=== PATIENT | female | born 1985 | race Hispanic/Latino ===

== ENCOUNTER 2021-01-05 07:26 | Day surgery (SDC) | payer OTHER ==
[2020-12-31 16:39] LABS: Absolute Lymphocytes (CBC) 2.9 K/uL (0.7-4.9); Basophils % 0.8 % (0-1.3); Hematocrit 41.8 % (36.0-45.0); Lymphocytes % 35.1 % (15.3-44.8); MPV 8.6 fL (7.6-11.3); RBC Red Blood Cell Count 4.63 M/uL (3.86-4.86)
[2020-12-31 16:50] LABS: ALT/SGPT 240 U/L (12-78); AST/SGOT 104 U/L (15-37); Albumin 3.4 g/dL (3.4-5.0); Alkaline Phosphatase 91 U/L (45-117); Amylase 75 U/L (25-115); BUN Blood Urea Nitrogen 11 mg/dL (7-18); Bicarbonate 26 mmol/L (21-32); Bilirubin Direct < 0.1 mg/dL (0-0.2); Bilirubin Total 0.3 mg/dL (0.2-1.0); Glucose Level 129 mg/dL (74-106); Lipase 212 U/L (73-393); Potassium 3.4 mmol/L (3.5-5.1); Sodium Level 142 mmol/L (136-145)
[2021-01-05 07:43] LABS: Specific Gravity > 1.030 (1.005-1.030)
[2021-01-05] MEDS ORDERED: Ringers Lactate 1,000 ML IV ONE (07:43)
[2021-01-05 08:13] VITALS: O2SAT 100
[2021-01-05] MEDS ORDERED: MIDAZOLAM HCL 2 MG/2 ML INJ ONE (08:18)
[2021-01-05] MEDS ORDERED: LIDOCAINE 1% MPF 5 ML VIAL ONE (08:18)
[2021-01-05] MEDS ORDERED: propofoL 200 MG/20 ML VIAL IV ONE (08:18)
[2021-01-05] MEDS ORDERED: FENTANYL CITR 100 MCG/2 ML ONE ×2 (08:18→08:46)
[2021-01-05] MEDS ORDERED: ROCURONIUM 50 MG/5 ML VIAL IV ONE (08:21)
[2021-01-05] MEDS: CEFOXITIN/NS 1gm 1 GM/50 ML BAG ONE ×2 (08:34→08:40)
[2021-01-05] MEDS: BUPIVACAINE 0.5% Inj,MDV 50 mL VIAL ONE ×2 (08:36→08:46)
[2021-01-05] MEDS ORDERED: GLYCOPYRROLATE 0.2 MG/ML SYR ONE (08:45)
[2021-01-05] MEDS ORDERED: dexAMETHasone 10 MG/ML VIAL ONE (08:45)
[2021-01-05] MEDS ORDERED: ONDANSETRON 4 MG/2 ML VIAL ONE (08:45)
[2021-01-05] MEDS ORDERED: NEOSTIGMINE 1 MG/ML -5 ML ONE (08:45)
[2021-01-05] MEDS ORDERED: KETOROLAC 30 MG/ML INJ ONE (08:45)
--- NOTE | 2021-01-05 09:08 | P.BOP ---
Preoperative diagnosis: symptomatic cholelithiasis, acute cholecystitis Postoperative diagnosis: same, umbilical hernia Primary procedure: Laparoscopic cholecystectomy Secondary procedure: Umbilical hernia repair Contact Lens Edge Buffer: BRIANNA SERRANO ([employer]NALY[employer]) Estimated blood loss: <10cc Specimen: GB, Hernia Findings: as above Anesthesia: General Complications: None Transferred to: Recovery Room Condition: Good
[2021-01-05] MEDS ORDERED: HYDROMORPHONE HCL 1 MG/ML INJ ONE (09:34)
[2021-01-05 10:08] VITALS: TEMP 97
[2021-01-05] MEDS ORDERED: CODEINE 30MG/APAP 300MG TAB ONE (10:34)
[2021-01-05 11:07] VITALS: BP 121/79
--- NOTE | 2021-01-05 11:34 | OP ---
Date of Procedure: 01/05/2021 Surgeon: Tom Adkins MD Circuit Walker: Jennifer Kirk. Preoperative Diagnoses: Symptomatic cholelithiasis, acute cholecystitis. Postoperative Diagnoses: Symptomatic cholelithiasis, acute cholecystitis, umbilical hernia. Procedures Performed: Laparoscopic cholecystectomy, repair of umbilical hernia. Estimated Blood Loss: Less than 10 cc. Anesthesia: General plus local. Indication: This is the case of a female, comes to us with epigastric right upper quadrant pain, sev eral attacks, diagnosed with acute cholecystitis, symptomatic cholelithiasis. The benefits, alternat jennifer, and risks of laparoscopic possible open cholecystectomy fully explained, which include, but not limited to infection, bleeding, damage to adjacent structures, anesthesia complication, choledocholi thiasis, bile leak, pancreatitis, MT, and even . She also understands this may not relieve symp toms. She might need more than one surgical intervention. She understood, signed a consent. Procedure In Detail: The patient was brought to the operating room, placed in supine position. Anes thesia was done without complication. Abdominal area was prepped and draped in a sterile fashion. L ocal anesthesia was applied followed by sharp incision of the skin in the infraumbilical region. Onc e we went inside, we noticed the patient to have an umbilical hernia and we opened the hernia sac, re moved the hernia sac, cleaned the fascial edges and used that. Vicryl #1 placed inside the fascia. Shmuel trocar was carefully introduced and pneumoperitoneum was obtained. I placed 3 more trocars, 5 mm each one of them in the epigastric and right upper quadrant area under direct visualization and a fter injecting local anesthetic. A grasper was placed in the fundus of the gallbladder, another gras per in the infundibulum retracting the gallbladder in the inferolateral fashion, exposing the triangl e of Calot and obtaining critical view. Cystic duct and cystic artery were clearly isolated, freed c ircumferentially and a connection between those and the gallbladder was clearly identified. I procee ded to ligate those by using at least 3 clips proximal, 1 clip distal, ligation in middle. Same was done with the cystic artery. No bile leak. No bleeding. The gallbladder was removed from liver usi ng Bovie cauterizer and removed from abdominal cavity using EndoCatch through umbilical incision. Th e area was inspected once again. No bile leak. No bleeding. Clips were intact. At that moment, I proceeded to remove trocars under direct vision. Deflated pneumoperitoneum. Closed the fascia and u mbilical hernia with #1 Vicryl. Irrigated subcutaneous tissue, closed that with 3-0 chromic and the skin in a subcuticular fashion with 3-0 chromic and Steri-Strips on top. Sponge count and instrument counts correct. The patient tolerated the procedure well. The patient was sent to recovery in stab le condition. Disposition: Home. Activity: As tolerated. No heavy lifting. Plan: Follow up in my office in 1 week. Call for appointment at [phone]. Keep area dry for 48 glenis rs, then may shower. Keep Steri-Strip intact. Medications: See orders. SAROJ/MODL Voice ID: [id number] Report ID: [id number]
== END 2021-01-05 11:20 | disposition home or self-care (01) ==
LOC: OR 07:26
PROVIDERS: ATTEND Surgery
PROC: 0WQF4ZZ Repair Abdominal Wall, Percutaneous Endoscopic Approach (ICD-10-PCS; 2021-01-05)
PROC: 0FT44ZZ Resection of Gallbladder, Percutaneous Endoscopic Approach (ICD-10-PCS; principal; 2021-01-05 08:30)
DX: K80.10 Calculus of gallbladder with chronic cholecystitis without obstruction (principal); K42.9 Umbilical hernia without obstruction or gangrene; Z20.822 Contact with and (suspected) exposure to COVID-19
CPT/HCPCS: 85025; 80048; 36415; 82150; 81025; 80076; 88302; 88304; 83690; 47562; 49652; U0003; J2704; J2250; J3010 ×2; J1100; J1170; J2710; J7120; J0694; J2405